=== PATIENT | female | born 1985 | race Caucasian/White ===

== ENCOUNTER 2017-12-20 14:57 | Emergency (ER) | payer SELFPAY ==
[2017-12-20 14:58] VITALS: BP 133/77; PULSE 84; RESP 18; TEMP 37.4; O2SAT 98; BMI 36.4
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
[2017-12-20] MEDS: Ibuprofen 600 MG Tablet PO (16:06)
--- NOTE | 2017-12-20 16:45 | ED.DEP ---
ED Disposition - Plan for ED Patient: Chief Complaint: Chest Other Instructions: ED Fx Rib Prescriptions: Oxycodone HCl/Acetaminophen [Percocet 5/325] 1 tab PO Q6H PRN PRN 3 Days #12 tab PRN Reason: Pain proMETHazine tablet [Phenergan] 25 mg PO Q6H PRN PRN #10 tab PRN Reason: Nausea Referrals: Gerald Davis [Primary Care Provider] -
[2017-12-20 17:07] VITALS: PULSE 74; RESP 16; TEMP 36.6
--- NOTE | 2017-12-20 17:08 | ED.RN ---
INCENTIVE SPIROMETER GIVEN TO PATIENT PER MD ORDER.
== END 2017-12-20 17:08 | disposition home or self-care (01) ==
LOC: ED 15:18
PROVIDERS: Emergency Provider Emergency Medicine; Family Provider Family Medicine; PCP Family Medicine
DX: S22.32XA Fracture of one rib, left side, initial encounter for closed fracture (principal); Y04.2XXA Assault by strike against or bumped into by another person, initial encounter; Y93.9 Activity, unspecified; Y92.9 Unspecified place or not applicable
CPT/HCPCS: 71101; 99283

== ENCOUNTER 2019-11-15 17:41 | Emergency (ER) | payer BC, SELFPAY ==
[2019-11-15 17:42] VITALS: BP 140/89; PULSE 115; RESP 22; TEMP 36; O2SAT 98; BMI 36.6
--- NOTE | 2019-11-15 17:56 | RAD_ITS ---
STUDY: X-RAY CHEST REASON FOR EXAM: Female, 34 years old. COUGH, INTERMITTENT FEVERS TECHNIQUE: Single AP portable view of the chest. COMPARISON: Prior study of 12/20/2017 FINDINGS: There is a right lower lobe infiltrate. There is no demonstrated pleural abnormality. Normal size heart. Normal mediastinum and tin. Normal visualized pulmonary arteries. Normal visualized aortic arch and descending thoracic aorta. Normal visualized thoracic spine. Normal visualized ribs, clavicles, and shoulders. There is no demonstrated abnormality of the visualized soft tissue structures of the upper abdomen. RAD/Chest 1 View (Portable) IMPRESSION: Right lower lobe infiltrate. Electronically Signed: Pete Donohue MD at 18:39 EDT , Service support ,
--- NOTE | 2019-11-15 17:58 | ED.VISSUMM ---
- ER Visit Summary Date of Service: 11/15/19 Chief Complaint: Cough History of Present Illness: The patient is a 34 F only past medical history is for rib fracture. Patient states that she has had a cough for about 10 days. Intermittent fevers of 100.5. No vomiting or diarrhea. Since that time she has a productive cough of yellowish sputum. No chest pain. 7 is for started she stretched she felt a pop in her chest and then days later she started coughing. She denies any falls or trauma. No recent travel, surgery, hospitalization or immobilization. No leg pain or swelling. No hemoptysis. No history of DVT or PE. Physical Examination: Young female no acute distress vital signs stable afebrile. Pulse ox 98%. H EENT exam unremarkable. Neck nontender no JVD. No lymphadenopathy. Lungs clear to auscultation bilaterally. Dry cough. No rales, rhonchi or wheezing. Equal symmetrical. Heart regular rhythm rate about 110 no murmur. Abdomen soft nontender. Normal bowel sounds no peritoneal signs. Patient moving all 4 extremities. Neurovascular intact. Calves nontender without edema or cords. Neurologically she is awake and alert with no focal motor deficits. Test Results: Portable 1 view chest x-ray read by myself shows a right lower lobe density consistent with a right lower lobe pneumonia. Emergency Department Course and Treatment: History and exam are consistent with a viral URI. She has had no known exposure to anyone with the Covid 19 virus. She is not short of breath. Her exam is benign. Treatment Plan: Concern patient clinically looks well. She is in no distress. She is not hypoxic or septic appearing. She will be started on Levaquin p.o. 7 or 50 mg a day for 5 days first dose given in ER. Follow-up with primary care physician if not improving or return to the emergency department if feeling worse. Disposition: Discharge Impression: Right lower lobe pneumonia This note was generated with [employer] dictation software. It may contain incorrect words, spelling, and punctuation that were not noted in review of the chart prior to signing ED Disposition - Plan for ED Patient: Referrals: Gerald Davis [Primary Care Provider] -
--- NOTE | 2019-11-15 18:12 | ED.DEP ---
ED Disposition - Plan for ED Patient: Disposition: Home or Assisted Living Instructions: ED PNEUMONITIS Adult, Treating Pneumonia Prescriptions: levoFLOXacin tablet [Levaquin tablet] 750 mg PO DAILY #4 tab Prescription Printed Referrals: Gerald Davis [Primary Care Provider] - 3-5 Days if not improving Additional Instructions: Alternate Tylenol Motrin for fever. Plenty of fluids and rest. Levaquin 1 pill a day for 4 more days starting tomorrow. Your chest x-ray shows a right lower lobe pneumonia. Follow-up with your doctor if not improving or return to the emergency department if you feel worse.
[2019-11-15] MEDS: levoFLOXacin 750 MG Tablet PO (18:19)
[2019-11-15 18:20] VITALS: BP 129/78; PULSE 102; PULSE 103; RESP 22; TEMP 36.6; TEMP 36.7; O2SAT 97
== END 2019-11-15 18:24 | disposition home or self-care (01) ==
PROVIDERS: Emergency Provider Emergency Medicine; PCP Family Medicine
DX: J18.9 Pneumonia, unspecified organism (principal)
CPT/HCPCS: 71045; 99283

== ENCOUNTER 2022-06-08 17:20 | Emergency (ER) | payer SELFPAY ==
[2022-06-08 17:21] VITALS: BP 152/103; PULSE 99; RESP 14; TEMP 36.7; O2SAT 99; BMI 39.7
--- NOTE | 2022-06-08 18:02 | EKG12_ITS ---
Test Reason : PAIN Blood Pressure : / mmHG Vent. Rate : 072 BPM Atrial Rate : 072 BPM P-R Int : 182 ms QRS Dur : 080 ms QT Int : 376 ms P-R-T Axes : 054 053 038 degrees QTc Int : 411 ms Normal sinus rhythm Normal ECG Confirmed by CAT US, LAYLA ([id number]), senior technical editor KEYONNA AYALA ([id number]) on 06/11/2022 11:39:54 AM Referred By: Confirmed By:LAYLA SHELTON MD
--- NOTE | 2022-06-08 18:03 | CT_ITS ---
EXAM: CT ABDOMEN AND PELVIS WITH INTRAVENOUS CONTRAST CLINICAL INDICATION: abdominal pain TECHNIQUE: Helically acquired images were obtained of the abdomen and pelvis with intravenous contrast. This CT exam was performed using one or more of the following dose reduction techniques: automated exposure control, adjustment of the mA and/or kV according to patient size, and/or use of iterative reconstruction technique. This report was created using [employer] report generation technology. CONTRAST: IV 100mL Isovue-300 COMPARISON: None. FINDINGS: LOWER THORAX: Unremarkable. Lung bases are clear. No cardiomegaly. No significant pericardial effusion. ABDOMEN: LIVER: Unremarkable. Homogeneous. No focal mass. GALLBLADDER AND BILE DUCTS: Unremarkable. No calcified gallstones. No gallbladder distention or wall edema. No intra- or extrahepatic biliary ductal dilation. PANCREAS: Unremarkable. No focal cystic or solid mass. SPLEEN: Unremarkable. Normal size without focal cystic or solid mass. ADRENALS: Unremarkable. No nodules. KIDNEYS AND URETERS: Unremarkable. Normal renal size and position. No hydronephrosis. STOMACH AND BOWEL: Diverticulosis, no acute diverticulitis. No stomach or bowel distention. PELVIS: APPENDIX: Normal visualized appendix. BLADDER: Unremarkable. REPRODUCTIVE: Unremarkable as visualized. No mass. ABDOMEN and PELVIS: INTRAPERITONEAL SPACE: Unremarkable. No ascites or other fluid collection. No free air. BONES/JOINTS: Unremarkable. No suspicious lytic or blastic abnormality. SOFT TISSUES: Unremarkable. No discrete abdominal or pelvic wall hernia. VASCULATURE: Unremarkable. Abdominal aorta is normal in caliber. LYMPH NODES: Unremarkable. No enlarged lymph nodes. CT/Abdomen/Pelvis W IV Cont ONLY IMPRESSION: No acute findings. Electronically Signed: Bri Abreu MD at 19:11 EDT Reading Location ID and State: [id number] / Tel , Service support ,
--- NOTE | 2022-06-08 18:04 | EX.ED.DYSGE1 ---
HPI History of Present Illness Chief Complaint: Nausea/Vomiting Detail of Chief Complaint: Vomiting and abdominal pain that started an hour ago Informant: patient Narrative Narrative: Patient presents the emergency department complaint of nausea and vomiting and abdominal pain. Patient states that she had dropped off a patient in acutely became nauseated and vomited multiple times. She complains of a lot of pressure and discomfort in the upper abdomen. Patient had eaten some lunch doubles for lunch but had not eaten much food. She still has her gallbladder. She is currently on her menstrual period. She denies urinary symptoms. Patient denies fever or recent illness. Prior similar symptoms: No PFSH PFSH Home Medications ondansetron 4 mg disintegrating tablet 4 mg PO Q8H PRN PRN Nausea #10 tabs 06/08/22 [Rx Last Taken Unknown] sulfamethoxazole 800 mg-trimethoprim 160 mg tablet 1 tab PO BID #6 TABLETS 06/08/22 [Rx Last Taken Unknown] Allergy/AdvReac Type Severity Reaction Status Date / Time acetaminophen [From Tylenol] AdvReac Nausea Verified 06/08/22 17:21 Social History Smoking Status: Never smoker ROS ROS ED Review of Systems ROS Unobtainable: other Constitutional Constitutional ED: Reports lethargy; Denies chills, fever(s), sweats or weight loss Eyes Eyes: Denies blurry vision, change in vision or diplopia ENT ENT ED: Denies rhinorrhea or sore throat Cardiovascular Cardiovascular: Reports racing heartbeat; Denies chest pain, orthopnea or palpitations Respiratory/Chest Respiratory/Chest: Denies cough, dyspnea, dyspnea on exertion, orthopnea or sputum Gastrointestinal Gastrointestinal: Reports abdominal pain, nausea and vomiting; Denies diarrhea Genitourinary Genitourinary ED: Denies dysuria, hematuria or urinary frequency Musculoskeletal Musculoskeletal: Denies arthralgias, back pain, myalgias or neck pain Integumentary Denies abscess, Abrasions or rash Neurologic Neurologic: Denies headache(s) or weakness Psychiatric Psychiatric: Denies anxiety, depression or suicidal thoughts Endocrine Endocrinology: Denies polydipsia, polyphagia or polyuria Hematologic/Lymphatic Hematologic/Lymphatic: Denies easy bleeding, easy bruising or lymphadenopathy Allergic/Immunologic Allergic/Immunologic ED: Denies mouth swelling, tongue swelling or urticaria EXAM Physical Exam Const Vital Signs: 06/08/22 17:21 Temperature 98.1 F Temperature Source Temporal Pulse Rate 99 Respiratory Rate 14 Blood Pressure 152/103 H Blood Pressure Mean 119 Pulse Ox 99 Oxygen Delivery Method Room Air Positive well nourished and well developed General Appearance ED: well developed and NAD HEENT Reports TM's clear and moist mucous membranes normocephalic and atraumatic; Negative for trauma or tenderness Tympanic Membrane ED: Yes TM's clear Eyes PERRL and EOMs intact bilaterally General Eye ED: Negative for pale conjunctiva or scleral icterus Neck no lymphadenopathy, supple and no JVD General: Negative for tenderness Chest Wall inspection of chest normal and palpation of chest normal Chest: Negative for tenderness Resp normal respiratory effort and clear to auscultation bilaterally Effort and Inspection: Negative for respiratory distress or pain with movement Auscultation: Negative for rhonchi, wheezes or diminished lung sounds Cardio regular rate, regular rhythm, S1 normal heart sound, S2 normal heart sound and no murmurs Peripheral Pulses: pulses 2+ throughout GI normal to inspection, nondistended, normoactive bowel sounds, soft to palpation, non-distended and no masses GI Narrative: Tenderness palpation over the epigastric region with some guarding. There is no rebound, rigidity, or peritoneal signs. No significant tenderness over the lower abdomen. Back/Spine no CVA tenderness and no thoracic nor lumbar tenderness Extremity normal to inspection General Extremety ED: Negative for edema General Extremity: Negative for edema Neuro oriented x3, CN's II-XII intact bilaterally, no sensory deficits noted and gait normal Sensorium / Orientation: awake, alert, oriented to person, oriented to place and oriented to time Motor Exam: strength 5/5 throughout and strength abnormal Psych mental status grossly normal Skin no rashes or lesions noted and no wounds MDM MDM MDM Narrative Medical decision making narrative: IV line established on arrival. Patient had lab work-up that was normal. CT scan of the abdomen pelvis also was unremarkable. Urinalysis was positive for nitrites as well as 5-10 WBCs and rare bacteria. Patient does state that she has had some urinary frequency and typically she is asymptomatic with her urinary tract infections until they become severe and she has kidney infection. Patient will be started on Bactrim for 3 days and I will send off a urine culture. Patient also will be given a prescription for Zofran. On repeat exam her nausea is resolved and she feels significantly improved. Etiology of her symptoms at this time unclear although this could be potentially gastritis versus viral enteritis type illness. Lab Data Attestation: I reviewed the patient's lab results. Labs: Laboratory Results - last 24 hr 06/08/22 06/08/22 06/08/22 18:10 18:10 18:10 WBC 9.5 RBC 4.73 Hgb 14.5 Hct 42.0 MCV 88.8 MCH 30.7 MCHC 34.5 RDW Std Deviation 40.2 RDW Coeff of Alyson 12.4 Plt Count 241 MPV 11.4 Immature Gran % (Auto) 0.400 Neut % (Auto) 65.9 Lymph % (Auto) 25.7 Kimball % (Auto) 6.6 Eos % (Auto) 1.1 Baso % (Auto) 0.3 Absolute Neuts (auto) 6.2 Absolute Lymphs (auto) 2.43 Nucleated RBC % 0 Sodium 140 Potassium 3.6 Chloride 107 Carbon Dioxide 25.0 Anion Gap 8 BUN 12 Creatinine 0.83 Estim Creat Clear Calc 76.77 Est GFR (MDRD) Af Amer 99 Est GFR (MDRD) Non-Af 82 BUN/Creatinine Ratio 14.4 Glucose 101 Calcium 8.9 Total Bilirubin 0.20 AST 15 ALT 21 Alkaline Phosphatase 75 Troponin I High Sens 4 Total Protein 7.4 Albumin 3.5 Globulin 3.9 Albumin/Globulin Ratio 0.9 Lipase 122 Serum , Qual NEGATIVE Urine Color Urine Clarity Urine pH Ur Specific [place] Urine Protein Urine Glucose (UA) Urine Ketones Urine Occult Blood Urine Nitrite Urine Bilirubin Urine Urobilinogen Ur Leukocyte Esterase Urine RBC Urine WBC Ur Squamous Epith Cells Urine Bacteria Urine Mucus 06/08/22 18:24 WBC RBC Hgb Hct MCV MCH MCHC RDW Std Deviation RDW Coeff of Alyson Plt Count MPV Immature Gran % (Auto) Neut % (Auto) Lymph % (Auto) Kimball % (Auto) Eos % (Auto) Baso % (Auto) Absolute Neuts (auto) Absolute Lymphs (auto) Nucleated RBC % Sodium Potassium Chloride Carbon Dioxide Anion Gap BUN Creatinine Estim Creat Clear Calc Est GFR (MDRD) Af Amer Est GFR (MDRD) Non-Af BUN/Creatinine Ratio Glucose Calcium Total Bilirubin AST ALT Alkaline Phosphatase Troponin I High Sens Total Protein Albumin Globulin Albumin/Globulin Ratio Lipase Serum , Qual Urine Color Yellow Urine Clarity Clear Urine pH 6.5 Ur Specific [place] 1.015 Urine Protein 15 H Urine Glucose (UA) Normal Urine Ketones Negative Urine Occult Blood 10 H Urine Nitrite Positive H Urine Bilirubin Negative Urine Urobilinogen Normal Ur Leukocyte Esterase 100 H Urine RBC 0 SEEN Urine WBC 5-10 SEEN Ur Squamous Epith Cells 0 SEEN Urine Bacteria RARE Urine Mucus 0 SEEN Radiography Diagnostic Testing: Clinical Impression(s) from Imaging Studies Abdomen/Pelvis CT 06/08/22 18:03 IMPRESSION: No acute findings. Electronically Signed: Bri Abreu MD at 19:11 EDT , EKG Initial EKG: Comments: Sinus rhythm with a rate of 72 bpm with no acute ST segment changes Discharge Plan Triage Chief Complaint: Nausea/Vomiting ED Provider: Dianelys Davidson Dx/Rx/DC Orders Clinical Impression: Vomiting, UTI (urinary tract infection) Instructions: Urinary Tract Infections in Women, ED Vomiting (Adult) Prescriptions: New sulfamethoxazole-trimethoprim [sulfamethoxazole-trimethoprim] 800-160 mg tablet 1 tab PO BID Qty: 6 0RF ondansetron [ondansetron] 4 mg tablet,disintegrating 4 mg PO Q8H PRN PRN (Reason: Nausea) Qty: 10 0RF Primary Care Provider: Care Physician,No Primary Referrals: Veronica Green MD [Med Staff - Field Support Technician] - 3-5 Days Care Physician,No Primary [Primary Care Provider] - Disposition Disposition: Home, Self Care
--- NOTE | 2022-06-08 18:08 | NURSING ---
NO OLD EKGS
[2022-06-08] MEDS: 0.9% Normal Saline 1,000 ML 150 ML IV (18:19)
[2022-06-08] MEDS: Ondansetron 4 MG/2 ML Vial IV (18:19)
[2022-06-08 18:26] LABS: Absolute Lymphocyte Count 2.43 X10^3/uL (0.83-4.51); Absolute Neutrophil Count 6.2 X10^3/uL (2.0-7.7); Basophil# 0.03 X10^3/uL; Basophil% 0.3 % (0-1); Eosinophils% 1.1 % (0-5); Hemoglobin 14.5 g/dL (12.0-15.0); Lymphocyte # 2.43 X10^3/ul (0.83-4.51); Lymphocyte % 25.7 % (19-41); Mean Corp Hgb Conc 34.5 g/dL (32-36); Mean Corpuscular Hgb 30.7 pg (27.0-32.0); Mean Corpuscular Volume 88.8 fL (81-99); Mean Platelet Vol. 11.4 fl (6.2-12.0); Monocyte# 0.62 X10^3/uL; Monocyte% 6.6 % (0-10); NRBC Flagged by Analyzer 0 % (0-5); Neutrophil # 6.23 X10^3/uL (2.7-7.7); Neutrophil % 65.9 % (47-70); Platelet Count 241 K/mm3 (150-450); RBC Distribution Width CV 12.4 % (11.6-14.6); RBC Distribution Width SD 40.2 fl (35.1-43.9); Red Blood Count 4.73 M/mm3 (4.2-5.4); White Blood Count 9.5 K/mm3 (4.4-11.0)
[2022-06-08 18:30] LABS: Mucous, Urine 0 SEEN /hpf (<or=2+); Red Blood Cells-Urine 0 SEEN /hpf (0-5); Squamous Epithelial Cells - UA 0 SEEN /hpf (5-10)
[2022-06-08 18:31] LABS: Internal QC Validated? YES +Cl - CLEAR BKGD; Pregnancy, Serum, hCG Quali. NEGATIVE Negative
[2022-06-08 18:32] LABS: Color, Urine Yellow (Yellow); Glucose, Dipstick Normal (Normal); Ketone-Dipstick Negative (Negative); Leukocyte Esterase-Dipstick 100 /ul (Negative); Nitrite-Dipstick Positive (Negative); Occult Blood-Urine 10 /ul (Negative); Protein-Dipstick 15 mg/dl (Negative); Specific Gravity, Urine 1.015 (1.002-1.030); Urine Bilirubin Dipstick Negative (Negative); Urine Clarity Clear (Clear); Urine Urobilinogen Normal (Normal); Urine pH 6.5 (5.0 - 8.0)
[2022-06-08 18:38] LABS: Bacteria RARE /hpf (None Seen); White Blood Cells 5-10 SEEN /hpf (0-5)
[2022-06-08 18:39] LABS: ALB/GLOB Ratio 0.9 RATIO (0.9-2.4); AST(SGOT) 15 U/L (15-37); Alanine Aminotransfer ALT/SGPT 21 U/L (13-56); Albumin, Serum 3.5 g/dL (3.2-5.0); Alkaline Phosphatase 75 U/L (45-117); Anion Gap 8 (5-15); BUN 12 mg/dL (7-18); BUN/Creat Ratio 14.4 RATIO (10-20); Calcium,Total 8.9 mg/dL (8.5-10.1); Chloride 107 mmol/L (98-107); Creatinine, Serum 0.83 mg/dL (0.55-1.02); EST Glomerular Filtration Rate 82 mL/min (>60); Est Glom Filt Rate - Afr Amer 99 mL/min (>60); Estimated Creatinine Clearance 76.77 ml/min; Globulin 3.9 g/dL (2.2-4.2); Glucose 101 mg/dL (74-106); Lipase 122 U/L (73-393); Potassium 3.6 mmol/L (3.5-5.1); Protein, Total 7.4 g/dL (6.4-8.2); Sodium Level 140 mmol/L (136-145); Troponin-I HS 4 pg/mL (3.0-54.0)
[2022-06-08] MEDS: Smz/Tmp Ds Tablet 1 TABLET PO (20:09)
== END 2022-06-08 20:12 | disposition home or self-care (01) ==
PROVIDERS: Emergency Provider Emergency Medicine; Visit Provider Emergency Medicine
DX: R11.2 Nausea with vomiting, unspecified (principal); N39.0 Urinary tract infection, site not specified
CPT/HCPCS: 74177; 80053; 81001; 83690; 84484; 84703; 85025; 87077; 87086; 87088; 93005; 96374; 99284; J7030; Q9967; A4216; J2405

== ENCOUNTER 2022-12-27 20:55 | Emergency (ER) | payer OTHER, SELFPAY ==
[2022-12-27 20:56] VITALS: BP 189/97; PULSE 91; RESP 18; TEMP 36.5; O2SAT 100; BMI 38.9
--- NOTE | 2022-12-27 21:05 | EDS_ITS ---
HPI History of Present Illness Chief Complaint: Other, Pain/Inj Narrative Narrative: Patient presents with few week history of cough and congestion today she felt something in her throat. She had difficulty swallowing. She has no fevers or chills, she has no chest pain. She has no stridor. She has no difficulty breathing. PFSH PFSH Home Medications ondansetron 4 mg disintegrating tablet 4 mg PO Q8H PRN PRN Nausea #10 tabs 06/08/22 [Rx Last Taken Unknown] sulfamethoxazole 800 mg-trimethoprim 160 mg tablet 1 tab PO BID #6 TABLETS 06/08/22 [Rx Last Taken Unknown] prednisone 20 mg tablet 60 mg PO DAILY 2 days #6 TABLETS 12/27/22 [Rx Last Taken Unknown] Allergy/AdvReac Type Severity Reaction Status Date / Time acetaminophen [From Tylenol] AdvReac Nausea Verified 12/27/22 20:58 Social History Smoking Status: Never smoker ROS ROS ED ROS Narrative Past medical history: Reviewed Medications: Reviewed Social history: Noncontributory Review of systems: All systems negative except as indicated General: No fever Eyes: No visual changes ENT: As in HPI Neck: No neck pain Cardiovascular: No chest pain Respiratory: No shortness of breath or cough Gastrointestinal: No abdominal pain, nausea vomiting or diarrhea EXAM Physical Exam Narrative Exam Narrative: Physical exam General: Patient appears comfortable. She does not appear in any distress Head: Normocephalic, Atraumatic Eyes: Conjunctiva not pale ENT: Moist mucous membranes. There is some slight congestion and rhinorrhea. Posterior oropharynx is normal soft palate is normal. The only abnormality is an enlarged uvula consistent with uvulitis. No stridor. She is speaking with a normal voice. Neck: Supple, Nontender, No lymphadenopathy Cardiovascular: Regular rate, Regular rhythm Respiratory: No distress, CTA bilaterally Skin: Normal color, No rash Const Vital Signs: 12/27/22 20:56 Temperature 97.7 F L Temperature Source Temporal Pulse Rate 91 Respiratory Rate 18 Blood Pressure 189/97 H Blood Pressure Mean 127 Pulse Ox 100 Oxygen Delivery Method Room Air MDM MDM MDM Narrative Medical decision making narrative: Patient has uvulitis which explains the symptoms. I thought about up retropharyngeal or deeper type of abscess, she does not have any signs or sy mptoms of this clinically. I thought about an upper respiratory infection, it is possible that she has a viral infection however it is also possible that she has an allergic component. At this time I do not see any reason for any kind of antibiotics. I thought about a chest x-ray however she has clear lungs and has no respiratory distress. I will treat the uvulitis with steroids. Otherwise arturo campuzano will be discharged in stable condition if she worsens she is to return. Discharge Plan Triage Chief Complaint: Other, Pain/Inj ED Provider: Zhang Meyer Dx/Rx/DC Orders Clinical Impression: Uvulitis, Acute upper respiratory infection Instructions: ED Uvulitis Prescriptions: New prednisone 20 mg tablet 60 mg PO DAILY 2 Days Qty: 6 0RF No Action sulfamethoxazole-trimethoprim [sulfamethoxazole-trimethoprim] 800-160 mg tablet 1 tab PO BID Qty: 6 0RF ondansetron [ondansetron] 4 mg tablet,disintegrating 4 mg PO Q8H PRN PRN (Reason: Nausea) Qty: 10 0RF Primary Care Provider: Care Physician,No Primary Referrals: Care Physician,No Primary [Primary Care Provider] - 3-5 Days Disposition Disposition: Home, Self Care
[2022-12-27] MEDS: dexAMETHasone 4 MG Tablet 12 MG PO (21:21)
[2022-12-27 21:53] VITALS: O2SAT 98
== END 2022-12-27 21:53 | disposition home or self-care (01) ==
PROVIDERS: Emergency Provider Emergency Medicine; Visit Provider Emergency Medicine
DX: K12.2 Cellulitis and abscess of mouth (principal); J06.9 Acute upper respiratory infection, unspecified
CPT/HCPCS: 99283

== ENCOUNTER 2025-02-18 20:17 | Emergency (ER) | payer OTHER, SELFPAY ==
[2025-02-18 20:18] VITALS: BP 137/89; PULSE 96; RESP 18; TEMP 36.6; O2SAT 100; BMI 41.5
--- NOTE | 2025-02-18 20:23 | RAD_ITS ---
PROCEDURE: CHEST PA AND LATERAL 02/18/2025 REASON FOR EXAM: COUGH TECHNIQUE: CHEST PA AND LATERAL FINDINGS: Hardware: None. Heart: Normal size Mediastinum: Unremarkable Lungs: Clear Bones: No aggressive bony lesions RAD/Chest PA and Lateral IMPRESSION: Negative chest. Reading [facility]
--- NOTE | 2025-02-18 20:30 | ED.RN ---
KATTY Aguilar gave the order for the x-ray.
--- OUTSIDE RECORDS SUMMARY | 2025-02-18 21:16 | XMS RPT_ITS | CCD ---
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 Name Role Phone Care Physician, No Primary Primary Care Unava ilDianelys Sharp Attending Unavailable Care Physician, No Primary Primary Care Unava ilZhang Ruano Attending Unavailable Allergies Allergy Classification Reported Allergen(s) Allergy Type Date of Onset Reaction(s) Facility (1 source) Acetaminophen Drug Allergy 12-27-2022 [facility] Repository Problems Active Problems Problem Classification Problem Date Documented Da te Episodic/Chronic Diseases of mouth; excluding dental (1 source) Cellulitis and abscess of mouth; Translations: [Cellulitis and abscess of mouth] Onset: 01-02-2023 Episodic Past or Other Problems Problem Classification Problem Date Documented Da te Episodic/Chronic Nausea and vomiting (1 source) Nausea with vomiting, unspecified; Translations: [Nausea with vomiting, unspecified] Onset: 06-14-2022 Episodic Results Test Name Value Interpretation Reference Range Facil ity Emergency Department Summary on 12-27-2022 Emergency Department Summary [facility] Medical Records Department [address] [place] [address] Emergency Department Summary 12/27/22 MR#: [id number] Acct: [id number] Name: SIOBHAN MARI Rep #: [id number] : 1985 37 From: Zhang Meyer MD PCP: Care Physician,No Primary Status:PRE ER Location: ED HPI History of Present Illness Chief Complaint: Other, Pain/Inj Narrative Narrative: Patient presents with few week history of cough and congestion today she felt something in her throat. She had difficulty swallowing. She has no fevers or chills, she has no chest pain. She has no stridor. She has no difficulty breathing. PFSH PFSH Home Medications ondansetron 4 mg disintegrating tablet 4 mg PO Q8H PRN PRN Nausea #10 tabs 06/08/22 [Rx Last Taken Unknown] sulfamethoxazole 800 mg-trimethoprim 160 mg tablet 1 tab PO BID #6 TABLETS 06/08/22 [Rx Last Taken Unknown] prednisone 20 mg tablet 60 mg PO DAILY 2 days #6 TABLETS 12/27/22 [Rx Last Taken Unknown] Allergy/AdvReac Type Severity Reaction Status Date / Time acetaminophen [From Tylenol] AdvReac Nausea Verified 12/27/22 20:58 Social History Smoking Status: Never smoker ROS ROS ED ROS Narrative Past medical history: Reviewed Medications: Reviewed Social history: Noncontributory Review of systems: All systems negative except as indicated General: No fever Eyes: No visual changes ENT: As in HPI Neck: No neck pain Cardiovascular: No chest pain Respiratory: No shortness of breath or cough Gastrointestinal: No abdominal pain, nausea vomiting or diarrhea EXAM Physical Exam Narrative Exam Narrative: Physical exam General: Patient appears comfortable. She does not appear in any distress Head: Normocephalic, Atraumatic Eyes: Conjunctiva not pale ENT: Moist mucous membranes. There is some slight congestion and rhinorrhea. Posterior oropharynx is normal soft palate is normal. The only abnormality is an enlarged uvula consistent with uvulitis. No stridor. She is speaking with a normal voice. Neck: Supple, Nontender, No lymphadenopathy Cardiovascular: Regular rate, Regular rhythm Respiratory: No distress, CTA bilaterally Skin: Normal color, No rash Const Vital Signs: 12/27/22 20:56 Temperature 97.7 F L Temperature Source Temporal Pulse Rate 91 Respiratory Rate 18 Blood Pressure 189/97 H Blood Pressure Mean 127 Pulse Ox 100 Oxygen Delivery Method Room Air MDM MDM MDM Narrative Medical decision making narrative: Patient has uvulitis which explains the symptoms. I thought about up retropharyngeal or deeper type of abscess, she does not have any signs or symptoms of this clinically. I thought about an upper respiratory infection, it is possible that she has a viral infection however it is also possible that she has an allergic component. At this time I do not see any reason for any kind of antibiotics. I thought about a chest x-ray however she has clear lungs and has no respiratory distress. I will treat the uvulitis with steroids. Otherwise patient will be discharged in stable condition if she worsens she is to return. Discharge Plan Triage Chief Complaint: Other, Pain/Inj ED Provider: Zhang Meyer Dx/Rx/DC Orders Clinical Impression: Uvulitis, Acute upper respiratory infection Instructions: ED Uvulitis Prescriptions: New prednisone 20 mg tablet 60 mg PO DAILY 2 Days Qty: 6 0RF No Action sulfamethoxazole-trim ethoprim [sulfamethoxazole-tri methoprim] 800-160 mg tablet 1 tab PO BID Qty: 6 0RF ondansetron [ondansetron] 4 mg tablet,disintegrating 4 mg PO Q8H PRN PRN (Reason: Nausea) Qty: 10 0RF Primary Care Provider: Care Physician,No Primary Referrals: Care Physician,No Primary [Primary Care Provider] - 3-5 Days Disposition Disposition: Home, Self Care What to do if you have Problems For any increased pain, shortness of breath, bleeding, nausea or vomiting, chest pain, or any unexpected problems, contact your Primary Care Provider. Call [facility] ([phone]) or report to the closest Emergency Room. Call 911 if necessary. 12/27/222109 Cosigner Signature (if applicable): CC: No Primary Care Physician Signed Normal [facility] Urine Cultureon 06-11-2022 [facility] Staphylococcus saprophyticus urine sensitivities are not recommended per CLSI guidelines. Treatment with Nitrofurantoin, Trimethoprim/Sulfa or a Fluroquinilone is suggested. Staphylococcus saprophyticus [place] Count >100,000 Normal [facility] Comment on above: Performed By: #### M 100.2200 #### [facility] [address] [place], [address] 12 Lead EKGon 06-08-2022 12 Lead EKG [facility] Cardiovascular Services [address] [place] [address] 12 Lead EKG 06/08/22 1808 MR#: [id number] Acct: [id number] Name: SIOBHAN MARI Rep #: [id number] : 1985 37 From: Camacho Shelton MD Attending Dr: Status: DEP ER Ordering Dr: Dianelys Davidson DO Date: 06/08/22 Location: ED Sex: F C Admitted: Test Reason : PAIN Blood Pressure : / mmHG Vent. Rate : 072 BPM Atrial Rate : 072 BPM P-R Int : 182 ms QRS Dur : 080 ms QT Int : 376 ms P-R-T Axes : 054 053 038 degrees QTc Int : 411 ms Normal sinus rhythm Normal ECG Confirmed by CAMACHO SHELTON MD ([id number]), image editor KEYONNA AYALA ([id number]) on 06/11/2022 11:39:54 AM Referred By: Confirmed By:CAMACHO SHELTON MD 06/11/22 1139 Date Camacho Shelton MD CC: Dr. Dianelys Davidson DO; No Primary Care Physician Signed Normal [facility] Abdomen/Pelvis W IV Cont ONL Yon 06-08-2022 Abdomen/Pelvis W IV Cont ONLY [facility] Imaging Services [address] [place] [address] Abdomen/Pelvis W IV Cont ONLY MR#: [id number] Acct: [id number] Name: SIOBHAN MARI Rep #: [id number] : 1985 F 37 From: Bri goodman MD PCP: Care Physician,No Primary Status: REG ER Study: Abdomen/Pelvis W IV Cont ONLY Date of Exam: Exam# [id number] Ordering Dr: Dianelys Davidson DO EXAM: CT ABDOMEN AND PELVIS WITH INTRAVENOUS CONTRAST CLINICAL INDICATION: abdominal pain TECHNIQUE: Helically acquired images were obtained of the abdomen and pelvis with intravenous contrast. This CT exam was performed using one or more of the following dose reduction techniques: automated exposure control, adjustment of the mA and/or kV according to patient size, and/or use of iterative reconstruction technique. This report was created using [employer] report generation technology. CONTRAST: IV 100mL Isovue-300 COMPARISON: None. FINDINGS: LOWER THORAX: Unremarkable. Lung bases are clear. No cardiomegaly. No significant pericardial effusion. ABDOMEN: LIVER: Unremarkable. Homogeneous. No focal mass. GALLBLADDER AND BILE DUCTS: Unremarkable. No calcified gallstones. No gallbladder distention or wall edema. No intra- or extrahepatic biliary ductal dilation. PANCREAS: Unremarkable. No focal cystic or solid mass. SPLEEN: Unremarkable. Normal size without focal cystic or solid mass. ADRENALS: Unremarkable. No nodules. KIDNEYS AND URETERS: Unremarkable. Normal renal size and position. No hydronephrosis. STOMACH AND BOWEL: Diverticulosis, no acute diverticulitis. No stomach or bowel distention. PELVIS: APPENDIX: Normal visualized appendix. BLADDER: Unremarkable. REPRODUCTIVE: Unremarkable as visualized. No mass. ABDOMEN and PELVIS: INTRAPERITONEAL SPACE: Unremarkable. No ascites or other fluid collection. No free air. BONES/JOINTS: Unremarkable. No suspicious lytic or blastic abnormality. SOFT TISSUES: Unremarkable. No discrete abdominal or pelvic wall hernia. VASCULATURE: Unremarkable. Abdominal aorta is normal in caliber. LYMPH NODES: Unremarkable. No enlarged lymph nodes. CT/Abdomen/Pelvis W IV Cont ONLY IMPRESSION: No acute findings. Electronically Signed: Bri Abreu MD at 19:11 EDT Reading Location ID and State: [id number] / Tel , Service support , CC: Dr. Dianelys Davidson, DO; No Primary Care Physician Judicial Registrar: Signed Normal [facility] CBC W/Diff, Automatedon 11-0 -2021 Absolute Lymph 2.43 X10 3/uL Normal 0.83-4.51 [facility] Comment on above: Performed By: #### L 700.6800, L500.4050, L100.0100, L501.4020, L501.2450 #### [facility] [address], [place], [id number] ([address] Absolute Neut 6.2 X10 3/uL Normal 2.0-7.7 [facility] Comment on above: Performed By: #### L 700.6800, L500.4050, L100.0100, L501.4020, L501.2450 #### [facility] [address] [place], [address] Basophils/100 WBC (Bld) 0.3 % Normal 0-1 [facility] Comment on above: Performed By: #### L 700.6800, L500.4050, L100.0100, L501.4020, L501.2450 #### [facility] [address] [place], [address] Eosinophils/100 WBC (Bld) 1.1 % Normal 0-5 [facility] Comment on above: Performed By: #### L 700.6800, L500.4050, L100.0100, L501.4020, L501.2450 #### [facility] [address] [place], [address] Erythrocyte distribution width (RBC) [Ratio] 12.4 % Normal 11.6-14.6 [facility] Comment on above: Performed By: #### L 700.6800, L500.4050, L100.0100, L501.4020, L501.2450 #### [facility] [address] [place], [address] Hematocrit (Bld) [Volume fraction] 42.0 % Normal 37-47 [facility] Comment on above: Performed By: #### L 700.6800, L500.4050, L100.0100, L501.4020, L501.2450 #### [facility] [address] [place], [address] Hemoglobin (Bld) [Mass/Vol] 14.5 g/dL Normal 12.0-15.0 [facility] Comment on above: Performed By: #### L 700.6800, L500.4050, L100.0100, L501.4020, L501.2450 #### [facility] [address] [place], [address] IG% 0.400 Normal 0.0-0.9 [facility] Comment on above: Result Comment: IG% - Immature Granulocytes (promyelocytes, myelocytes and metamyelocytes) > 1% indicates that a LEFT SHIFT is Present. Performed By: #### L 700.6800, L500.4050, L100.0100, L501.4020, L501.2450 #### [facility] [address] [place], [address] Lymphocytes/100 WBC (Bld) 25.7 % Normal 19-41 [facility] Comment on above: Performed By: #### L 700.6800, L500.4050, L100.0100, L501.4020, L501.2450 #### [facility] [address] [place], [address] MCH (RBC) [Entitic mass] 30.7 pg Normal 27.0-32.0 [facility] Comment on above: Performed By: #### L 700.6800, L500.4050, L100.0100, L501.4020, L501.2450 #### [facility] [address] [place], [address] MCHC (RBC) [Mass/Vol] 34.5 g/dL Normal 32-36 [facility] Comment on above: Performed By: #### L 700.6800, L500.4050, L100.0100, L501.4020, L501.2450 #### [facility] [address] [place], [address] MCV (RBC) [Entitic vol] 88.8 fL Normal 81-99 [facility] Comment on above: Performed By: #### L 700.6800, L500.4050, L100.0100, L501.4020, L501.2450 #### [facility] [address] [place], [address] Monocytes/100 WBC (Bld) 6.6 % Normal 0-10 [facility] Comment on above: Performed By: #### L 700.6800, L500.4050, L100.0100, L501.4020, L501.2450 #### [facility] [address] [place], [address] Neutrophils/100 WBC (Bld) 65.9 % Normal 47-70 [facility] Comment on above: Performed By: #### L 700.6800, L500.4050, L100.0100, L501.4020, L501.2450 #### [facility] [address] [place], [address] Nucleated RBC (Bld) [#/Vol] 0 10*3/uL Normal 0-5 [facility] Comment on above: Performed By: #### L 700.6800, L500.4050, L100.0100, L501.4020, L501.2450 #### [facility] [address] [place], [address] Platelet mean volume (Bld) [Entitic vol] 11.4 fL Normal 6.2-12.0 [facility] Comment on above: Performed By: #### L 700.6800, L500.4050, L100.0100, L501.4020, L501.2450 #### [facility] [address] [place], [address] Platelets (Bld) [#/Vol] 241 10*3/uL Normal 150-450 [facility] Comment on above: Performed By: #### L 700.6800, L500.4050, L100.0100, L501.4020, L501.2450 #### [facility] [address] [place], [address] RBC (Bld) [#/Vol] 4.73 10*6/uL Normal 4.2-5.4 [facility] Comment on above: Performed By: #### L 700.6800, L500.4050, L100.0100, L501.4020, L501.2450 #### [facility] [address] [place], [address] RDW SD 40.2 fl Normal 35.1-43.9 [facility] Comment on above: Performed By: #### L 700.6800, L500.4050, L100.0100, L501.4020, L501.2450 #### [facility] [address] [place], [address] WBC (Bld) [#/Vol] 9.5 10*3/uL Normal 4.4-11.0 [facility] Comment on above: Performed By: #### L 700.6800, L500.4050, L100.0100, L501.4020, L501.2450 #### [facility] [address] [place], [address] Comprehensive Metabolic Prof ilon 06-08-2022 Albumin [Mass/Vol] 3.5 g/dL Normal 3.2-5.0 [facility] Comment on above: Order Comment: 'TROP ' Serial specimen #1, #2 or #3: 1 Performed By: #### L 700.6800, L500.4050, L100.0100, L501.4020, L501.2450 #### [facility] [address] [place], [address] Albumin/Globulin [Mass ratio] 0.9 {ratio} Normal 0.9-2.4 [facility] Comment on above: Order Comment: 'TROP ' Serial specimen #1, #2 or #3: 1 Performed By: #### L 700.6800, L500.4050, L100.0100, L501.4020, L501.2450 #### [facility] [address] [place], [address] ALK P 75 U/L Normal 45-117 [facility] Comment on above: Order Comment: 'TROP ' Serial specimen #1, #2 or #3: 1 Performed By: #### L 700.6800, L500.4050, L100.0100, L501.4020, L501.2450 #### [facility] [address] [place], [address] ALT [Catalytic activity/Vol] 21 U/L Normal 13-56 [facility] Comment on above: Order Comment: 'TROP ' Serial specimen #1, #2 or #3: 1 Performed By: #### L 700.6800, L500.4050, L100.0100, L501.4020, L501.2450 #### [facility] [address] [place], [address] AST [Catalytic activity/Vol] 15 U/L Normal 15-37 [facility] Comment on above: Order Comment: 'TROP ' Serial specimen #1, #2 or #3: 1 Performed By: #### L 700.6800, L500.4050, L100.0100, L501.4020, L501.2450 #### [facility] [address] [place], [address] Bilirubin [Mass/Vol] 0.20 mg/dL Normal 0.20-1.00 [facility] Comment on above: Order Comment: 'TROP ' Serial specimen #1, #2 or #3: 1 Result Comment: For patients on eltrombopag therapy, use of Dimension [place] TBIL is not recommended. Performed By: #### L 700.6800, L500.4050, L100.0100, L501.4020, L501.2450 #### [facility] [address] [place], [address] BUN/CRE 14.4 RATIO Normal 10-20 [facility] Comment on above: Order Comment: 'TROP ' Serial specimen #1, #2 or #3: 1 Performed By: #### L 700.6800, L500.4050, L100.0100, L501.4020, L501.2450 #### [facility] [address] [place], [address] CA,Total 8.9 mg/dL Normal 8.5-10.1 [facility] Comment on above: Order Comment: 'TROP ' Serial specimen #1, #2 or #3: 1 Performed By: #### L 700.6800, L500.4050, L100.0100, L501.4020, L501.2450 #### [facility] [address] [place], [address] Chloride [Moles/Vol] 107 mmol/L Normal 98-107 [facility] Comment on above: Order Comment: 'TROP ' Serial specimen #1, #2 or #3: 1 Performed By: #### L 700.6800, L500.4050, L100.0100, L501.4020, L501.2450 #### [facility] [address] [place], [address] CO2 [Moles/Vol] 25.0 mmol/L Normal 21.0-32.0 [facility] Comment on above: Order Comment: 'TROP ' Serial specimen #1, #2 or #3: 1 Performed By: #### L 700.6800, L500.4050, L100.0100, L501.4020, L501.2450 #### [facility] [address] [place], [address] Creatinine [Mass/Vol] 0.83 mg/dL Normal 0.55-1.02 [facility] Comment on above: Order Comment: 'TROP ' Serial specimen #1, #2 or #3: 1 Result Comment: The validity of the calculated GFR GFRAA in patients over 70 years has not been determined. Clinical correlation is essential. Performed By: #### L 700.6800, L500.4050, L100.0100, L501.4020, L501.2450 #### [facility] [address] [place], [address] ECRCL 76.77 ml/min Normal [facility] Comment on above: Order Comment: 'TROP ' Serial specimen #1, #2 or #3: 1 Performed By: #### L 700.6800, L500.4050, L100.0100, L501.4020, L501.2450 #### [facility] [address] [place], [address] EST GFR - AA 99 mL/min Normal >60 [facility] Comment on above: Order Comment: 'TROP ' Serial specimen #1, #2 or #3: 1 Result Comment: Afri can Bah[place]ian GFR Calc Performed By: #### L 700.6800, L500.4050, L100.0100, L501.4020, L501.2450 #### [facility] [address] [place], [address] GAP 8 Normal 5-15 [facility] Comment on above: Order Comment: 'TROP ' Serial specimen #1, #2 or #3: 1 Performed By: #### L 700.6800, L500.4050, L100.0100, L501.4020, L501.2450 #### [facility] [address] [place], [address] GFR/1.73 sq M.predicted among non-blacks MDRD (S/P/Bld) [Vol rate/Area] 82 mL/min/{1.73_m2} Normal >60 [facility] Comment on above: Order Comment: 'TROP ' Serial specimen #1, #2 or #3: 1 Result Comment: Non- GFR Calc Performed By: #### L 700.6800, L500.4050, L100.0100, L501.4020, L501.2450 #### [facility] [address] [place], [address] Globulin (S) [Mass/Vol] 3.9 g/dL Normal 2.2-4.2 [facility] Comment on above: Order Comment: 'TROP ' Serial specimen #1, #2 or #3: 1 Performed By: #### L 700.6800, L500.4050, L100.0100, L501.4020, L501.2450 #### [facility] [address] [place], [address] Glucose [Mass/Vol] 101 mg/dL Normal 74-106 [facility] Comment on above: Order Comment: 'TROP ' Serial specimen #1, #2 or #3: 1 Result Comment: Fast ing Glucose result from 100 to 125 mg/dL suggests IMPAIRED HOMEOSTASIS per A.D.A. criteria. Performed By: #### L 700.6800, L500.4050, L100.0100, L501.4020, L501.2450 #### [facility] [address] [place], [address] Potassium [Moles/Vol] 3.6 mmol/L Normal 3.5-5.1 [facility] Comment on above: Order Comment: 'TROP ' Serial specimen #1, #2 or #3: 1 Performed By: #### L 700.6800, L500.4050, L100.0100, L501.4020, L501.2450 #### [facility] [address] [place], [address] Sodium [Moles/Vol] 140 mmol/L Normal 136-145 [facility] Comment on above: Order Comment: 'TROP ' Serial specimen #1, #2 or #3: 1 Performed By: #### L 700.6800, L500.4050, L100.0100, L501.4020, L501.2450 #### [facility] [address] [place], [address] T PROT 7.4 g/dL Normal 6.4-8.2 [facility] Comment on above: Order Comment: 'TROP ' Serial specimen #1, #2 or #3: 1 Performed By: #### L 700.6800, L500.4050, L100.0100, L501.4020, L501.2450 #### [facility] [address] [place], [address] Urea nitrogen [Mass/Vol] 12 mg/dL Normal 7-18 [facility] Comment on above: Order Comment: 'TROP ' Serial specimen #1, #2 or #3: 1 Performed By: #### L 700.6800, L500.4050, L100.0100, L501.4020, L501.2450 #### [facility] [address] [place], [address] Emergency Department Summary on 06-08-2022 Emergency Department Summary [facility] Medical Records Department [address] [place] [address] Emergency Department Summary 06/08/22 MR#: [id number] Acct: [id number] Name: SIOBHAN MARI Rep #: [id number] : 1985 37 From: Dianelys Davidson DO PCP: Care Physician,No Primary Status:DEP ER Location: ED HPI History of Present Illness Chief Complaint: Nausea/Vomiting Detail of Chief Complaint: Vomiting and abdominal pain that started an hour ago Informant: patient Narrative Narrative: Patient presents the emergency department complaint of nausea and vomiting and abdominal pain. Patient states that she had dropped off a patient in acutely became nauseated and vomited multiple times. She complains of a lot of pressure and discomfort in the upper abdomen. Patient had eaten some lunch doubles for lunch but had not eaten much food. She still has her gallbladder. She is currently on her menstrual period. She denies urinary symptoms. Patient denies fever or recent illness. Prior similar symptoms: No PFSH PFSH Home Medications ondansetron 4 mg disintegrating tablet 4 mg PO Q8H PRN PRN Nausea #10 tabs 06/08/22 [Rx Last Taken Unknown] sulfamethoxazole 800 mg-trimethoprim 160 mg tablet 1 tab PO BID #6 TABLETS 06/08/22 [Rx Last Taken Unknown] Allergy/AdvReac Type Severity Reaction Status Date / Time acetaminophen [From Tylenol] AdvReac Nausea Verified 06/08/22 17:21 Social History Smoking Status: Never smoker ROS ROS ED Review of Systems ROS Unobtainable: other Constitutional Constitutional ED: Reports lethargy; Denies chills, fever(s), sweats or weight loss Eyes Eyes: Denies blurry vision, change in vision or diplopia ENT ENT ED: Denies rhinorrhea or sore throat Cardiovascular Cardiovascular: Reports racing heartbeat; Denies chest pain, orthopnea or palpitations Respiratory/Chest Respiratory/Chest: Denies cough, dyspnea, dyspnea on exertion, orthopnea or sputum Gastrointestinal Gastrointestinal: Reports abdominal pain, nausea and vomiting; Denies diarrhea Genitourinary Genitourinary ED: Denies dysuria, hematuria or urinary frequency Musculoskeletal Musculoskeletal: Denies arthralgias, back pain, myalgias or neck pain Integumentary Denies abscess, Abrasions or rash Neurologic Neurologic: Denies headache(s) or weakness Psychiatric Psychiatric: Denies anxiety, depression or suicidal thoughts Endocrine Endocrinology: Denies polydipsia, polyphagia or polyuria Hematologic/Lymphatic Hematologic/Lymphatic : Denies easy bleeding, easy bruising or lymphadenopathy Allergic/Immunologic Allergic/Immunologic ED: Denies mouth swelling, tongue swelling or urticaria EXAM Physical Exam Const Vital Signs: 06/08/22 17:21 Temperature 98.1 F Temperature Source Temporal Pulse Rate 99 Respiratory Rate 14 Blood Pressure 152/103 H Blood Pressure Mean 119 Pulse Ox 99 Oxygen Delivery Method Room Air Positive well nourished and well developed General Appearance ED: well developed and NAD HEENT Reports TM's clear and moist mucous membranes normocephalic and atraumatic; Negative for trauma or tenderness Tympanic Membrane ED: Yes TM's clear Eyes PERRL and EOMs intact bilaterally General Eye ED: Negative for pale conjunctiva or scleral icterus Neck no lymphadenopathy, supple and no JVD General: Negative for tenderness Chest Wall inspection of chest normal and palpation of chest normal Chest: Negative for tenderness Resp normal respiratory effort and clear to auscultation bilaterally Effort and Inspection: Negative for respiratory distress or pain with movement Auscultation: Negative for rhonchi, wheezes or diminished lung sounds Cardio regular rate, regular rhythm, S1 normal heart sound, S2 normal heart sound and no murmurs Peripheral Pulses: pulses 2+ throughout GI normal to inspection, nondistended, normoactive bowel sounds, soft to palpation, non-distended and no masses GI Narrative: Tenderness palpation over the epigastric region with some guarding. There is no rebound, rigidity, or peritoneal signs. No significant tenderness over the lower abdomen. Back/Spine no CVA tenderness and no thoracic nor lumbar tenderness Extremity normal to inspection General Extremety ED: Negative for edema General Extremity: Negative for edema Neuro oriented x3, CN's II-XII intact bilaterally, no sensory deficits noted and gait normal Sensorium / Orientation: awake, alert, oriented to person, oriented to place and oriented to time Motor Exam: strength 5/5 throughout and strength abnormal Psych mental status grossly normal Skin no rashes or lesions noted and no wounds MDM MDM MDM Narrative Medical decision making narrative: IV line established on arrival. Patient had lab work-up that was normal. CT scan of the abdomen pelvis also w (more content not included)... Normal [facility] L501.4020on 06-08-2022 TROPONIN-I HS 4 pg/mL Normal 3.0-54.0 [facility] Comment on above: Order Comment: 'TROP ' Serial specimen #1, #2 or #3: 1 Result Comment: Layla jordan Note: New Test Units and Gender Specific Reference Ranges. For more information see Policy Stat Procedure [place] High Sensitivity Troponin (TNIH) and attachments. Performed By: #### L 700.6800, L500.4050, L100.0100, L501.4020, L501.2450 ####[facility] [address] [place], [address] Lipaseon 06-08-2022 Lipase [Catalytic activity/Vol] 122 U/L Normal 73-393 [facility] Comment on above: Order Comment: 'TROP ' Serial specimen #1, #2 or #3: 1 Performed By: #### L 700.6800, L500.4050, L100.0100, L501.4020, L501.2450 #### [facility] [address] [place], [address] ,Serum,hCG Quali.on 06-08-2022 HCG, SERUM QUAL Negative Normal [facility] Comment on above: Performed By: #### L 700.6800, L500.4050, L100.0100, L501.4020, L501.2450 #### [facility] [address] [place], [address] Urinalysis, Completeon 06-08 BACTERIA RARE Normal None Seen [facility] Comment on above: Order Comment: CLEAN CATCH Performed By: #### L 400.0001 #### [facility] [address] [place], [address] WBC 5-10 SEEN Normal 0-5 [facility] Comment on above: Order Comment: CLEAN CATCH Performed By: #### L 400.0001 #### [facility] [address] [place], [address] EPI,SQUAMOUS 0 SEEN Normal 5-10 [facility] Comment on above: Order Comment: CLEAN CATCH Performed By: #### L 400.0001 #### [facility] [address] [place], [address] Mucus Ql (Urine sed) 0 SEEN Normal [facility] Comment on above: Order Comment: CLEAN CATCH Performed By: #### L 400.0001 #### [facility] [address] [place], [address] RBC 0 SEEN Normal 0-5 [facility] Comment on above: Order Comment: CLEAN CATCH Performed By: #### L 400.0001 #### [facility] [address] [place], [address] COVID PCR, SCREENING [facility] 01-28-2020 CORONAVIRUS 2019,PCR NOT DETECTED Normal Not Detected [facility] Comment on above: Result Comment: This assay is designed to detect the N, ORF1ab and/or S genes of SARS-CoV-2 via nucleic acid amplification. A Negative (NOT DETECTED) result does not preclude 2019-nCoV infection since the adequacy of sample collection and/or low viral burden may result in presence of viral nucleic acids below the clinical sensitivity of this test method. Negative (NOT DETECTED) result should not be used as the sole basis for treatment or other patient management decisions. Rather negative results should be combined with clinical observations, patient history, and epidemiological information to make patient management decisions. Fact sheet for providers: https://www.fda.gov/media/371043/download Fact sheet for patients: https://www.fda.gov/media/054141/download This test has received FDA Emergency Use Authorization (EUA) and has been verified by [facility] ([facility]). This test is only authorized for the duration of time that circumstances exist to justify the authorization of the emergency use of in vitro diagnostic tests for the detection of SARS-CoV-2 virus and/or diagnosis of COVID-19 infection under section 564(b)(1) of the Act, 21 U.S.C. 360bbb-3(b)(1), unless the authorization is terminated or revoked sooner. [facility] ([facility]) is certified under CLIA-88 as qualified to perform high complexity testing. This tests analytical performance characteristics have been determined by [facility]. Testing is performed at [facility] is located at [address] [place] [address] (CLIA License #[id number], CAP #[id number]). Performed By: #### C VCLA #### [facility] [address] [place] [address] COVID PCR, SCREENING [facility] 01-27-2020 Lab Specimen Source Nasal, Nasopharyngeal Normal [facility] Comment on above: Performed By: #### C VCLA #### [facility] [address] [place] [address] Encounters Encounter Date Encounter Type Care Provider Facility Start: 12-27-2022 End: 12-27-2022 Emergency department patient visit No Primary Care Physician Facility:[facility] Start: 06-08-2022 End: 06-08-2022 Emergency department patient visit No Primary Care Physician Facility:[facility] Payers Date Payer Category Payer Private Health Insurance [id number] 2022 Self-pay Unknown [id number] Unknown [id number] Summary Purpose Family History No Family History Records FoundNo Family History Records Found Advance Directives No Advanced Directives Records FoundNo Advanced Directives Records Found Additional Source Comments INFORMATION SOURCE (unrecogn ized section and content) DATE CREATED AUTHOR 02/23/2020 [facility] DATE CREATED AUTHOR AUTHOR'S MUKESH LIION 01/11/2023 [facility] FOR RECORDS PERTAINING TO PATIENTS WHO ARE OR HAVE BEEN ENROLLED IN A CHEMICAL DEPENDENCY/SUBSTANCEABUSE PROGRAM, SOME INFORMATION MAY BE OMITTED. This clinical summary was aggregated from multiple sources. Caution should be exercised in using it in the provision of clinical care. This summary normalizes information from multiple sources, and as a consequence, information in this document may materially change the coding, format and clinical context of patient data. In addition, data may be omitted in some cases. CLINICAL DECISIONS SHOULD BE BASED ON THE PRIMARY CLINICAL RECORDS. [employer] [facility]. provides no warranty or guarantee of the accuracy or completeness of information in this document.
--- NOTE | 2025-02-18 21:47 | EDS_ITS ---
HPI History of Present Illness Chief Complaint: Cough Informant: patient Onset/Context/Timing Onset: Days (Worse over the past 4 days) and Weeks (Constant for the past 8 weeks) Context: Gradual Onset Timing: Continuous Quality: Tightness Location: Chest Worsened by: Drinking fluids, in the morning, and at night Relieved by: Nothing Narrative Narrative: Patient presents with a cough that has been constant for the past 8 weeks. Patient states it is gotten worse over the last 4 days. Patient states she has tried multiple amcj-iea-nkiwfic medications without any improvement. Patient states when she wakes up in the morning her cough is worse. Patient states that is also worse when she lays down at night. Patient states she occasionally coughs up some clear sputum. Patient states she feels like she has some tightness in her chest. Patient states sometimes when she drinks some fluids her cough gets worse. Patient states she has tried omeprazole, dextromethorphan, and Mucinex. Patient denies any fevers or chills. PFSH [facility] Medical History (Updated 02/18/25 @ 21:[address] Nabeel Garza DO) Anxiety Depression Home Medications ?Medication ?Instructions ?Recorded ?Last Taken ?Type ondansetron 4 mg disintegrating 4 mg PO Q8H PRN PRN Na usea #10 tabs 06/08/22 Unknown Rx tablet sulfamethoxazole 800 1 tab PO BID #6 TABLETS 11/24 Unknown Rx mg-trimethoprim 160 mg tablet prednisone 20 mg tablet 60 mg (3 x 20 mg) PO DAILY 2 days 12/27/22 Unknown Rx #6 TABLETS codeine 10 mg-guaifenesin 200 mg/5 5 ml PO Q6H PRN cou gh #200 mL 02/18/25 Unknown Rx mL oral liquid (Coditussin AC) Allergy/AdvReac Type Severity Reaction Status Date / Time acetaminophen (From Tylenol) AdvReac Nausea Verified 02/18/25 20:20 Surgical History (Updated 02/18/25 @ 21:[address] Nabeel Garza DO) Hx of dilation and curettage Social History Smoking Status: Never smoker ROS ROS ED Constitutional Constitutional ED: Denies chills or fever(s) Eyes Eyes: Denies blurry vision or change in vision ENT ENT ED: Denies rhinorrhea or sore throat Cardiovascular Cardiovascular: Reports chest pain; Denies palpitations Respiratory/Chest Respiratory/Chest: Reports cough and dyspnea Gastrointestinal Gastrointestinal: Denies nausea or vomiting Genitourinary Genitourinary ED: Denies dysuria or hematuria Musculoskeletal Musculoskeletal: Denies back pain or neck pain Integumentary Denies abscess or rash Neurologic Neurologic: Reports headache(s); Denies weakness Allergic/Immunologic Allergic/Immunologic ED: Denies mouth swelling or urticaria EXAM Physical Exam Const Vital Signs: 02/18/25 20:18 Temperature 97.8 F Temperature Source Temporal Pulse Rate 96 Respiratory Rate 18 Blood Pressure 137/89 H Blood Pressure Mean 105 Pulse Ox 100 Oxygen Delivery Method Room Air Positive well nourished and well developed General Appearance ED: well developed and NAD HEENT Reports moist mucous membranes Neck supple and no JVD Resp normal respiratory effort and clear to auscultation bilaterally Cardio regular rate and regular rhythm GI non-tender and non-distended Palpation: soft Neuro oriented x3, CN's II-XII intact bilaterally and no sensory deficits noted Sensorium / Orientation: alert Motor Exam: strength 5/5 throughout Psych mental status grossly normal MDM MDM MDM Narrative Medical decision making narrative: Differential diagnosis includes pneumonia, bronchitis, viral illness, and upper respiratory infection. Chest x-ray will be obtained to assess for pneumonia or bronchitis. COVID-19, influenza, and RSV PCR will be obtained to assess for viral illness. Lab Data Attestation: I reviewed the patient's lab results. Lab results narrative: COVID-19 PCR was reviewed and was negative. Influenza PCR was reviewed and was negative for influenza A and influenza B. RSV PCR was reviewed and was negative. Radiography Chest X-Ray - ED: 2 View, Read by ED Physician, Read by Radiologist and No Acute Disease Diagnostic Testing: Clinical Impression(s) from Imaging Studies Chest X-Ray 02/18/25 20:23 IMPRESSION: Negative chest. [facility] and lateral chest x-ray was obtained. There are 2 views. On my independent interpretation, lung oglesby are clear. There is normal cardiac silhouette. B aisha thorax is normal. There is no acute process noted. Radiologist also interpreted the x-ray and agrees. Treatment and Re-Evaluation :: Patient was advised of her findings. Patient was given a prescription for guaifenesin and codeine cough syrup. Patient was instructed to follow-up with her primary care physician in 5 to 7 days. Patient understood and was agreeable with the plan. All questions were answered. Discharge Plan Triage Chief Complaint: Cough ED Provider: Nabeel Garza Dx/Rx/DC Orders Clinical Impression: Cough, Viral upper respiratory tract infection Instructions: ED Cough Chronic Uncertain Cause Adult, ED URI, Viral, No Abx (Adult) Prescriptions: New Coditussin AC 10-200 mg/5 mL liquid 5 ml PO Q6H PRN (Reason: cough) Qty: 200 0RF No Action sulfamethoxazole-trimethoprim [sulfamethoxazole-trimethoprim] 800-160 mg tablet 1 tab PO BID Qty: 6 0RF ondansetron [ondansetron] 4 mg tablet,disintegrating 4 mg PO Q8H PRN PRN (Reason: Nausea) Qty: 10 0RF prednisone 20 mg tablet 60 mg PO DAILY 2 Days Qty: 6 0RF Primary Care Provider: Care Physician,No Primary Referrals: Curtis Taveras MD [Med Staff - Nutrition Aides Teacher] - 5-7 Days Care Physician,No Primary [Primary Care Provider] - Print Language: Nepali Disposition Disposition: Home, Self Care
[2025-02-18 22:50] VITALS: RESP 19; O2SAT 95
[2025-02-18 22:51] VITALS: BP 136/78; PULSE 76; RESP 19; TEMP 36.7; O2SAT 95
== END 2025-02-18 22:58 | disposition home or self-care (01) ==
PROVIDERS: Emergency Provider Emergency Medicine; Referring Provider Emergency Medicine; Visit Provider Emergency Medicine
DX: R05.9 Cough, unspecified (principal); J06.9 Acute upper respiratory infection, unspecified
CPT/HCPCS: 71046; 87631; 94760; 99282